=== PATIENT | female | born 1930 | race Caucasian/White ===

== ENCOUNTER 2016-12-29 21:07 | Inpatient (IN) | payer MEDICARE, OTHER ==
[~2016-12-29] VITALS: Ht 160 cm; Wt 52.3 kg
--- NOTE | ~2016-12-29 | OR ---
PATIENT'S NAME: LOIS [facility] AGE: 86 Y [address] ROOM: [place] [address] LOCATION: [facility] ADMIT DATE: 12/29/2016 OR/Procedure Report DISCHARGE DATE: FAMILY PHYSICIAN: PHYSICIAN, UNKNOWN ATTENDING PHYSICIAN: MARK MONTES SURGEON: Jh Acevedo MD X RAY DEVELOPING MACHINE OPERATOR: Luis Alberto Swift PA-C. DATE OF PROCEDURE: 12/30/2016 PREOPERATIVE DIAGNOSIS: Right comminuted and displaced intertrochanteric fracture of the proximal femur. POSTOPERATIVE DIAGNOSIS: Right comminuted and displaced intertrochanteric fracture of the proximal femur. PROCEDURE: 1. Right femoral intramedullary nailing. 2. Use of intraoperative fluoroscopy, less than 1 hour. ANESTHESIA: General endotracheal anesthesia. FLUIDS: See Anesthesia report. ESTIMATED BLOOD LOSS: Less than 50 mL. SPECIMEN: None. COMPLICATIONS: None. DISPOSITION: Stable in PACU. COUNTS: All counts correct. IMPLANTS: Synthes TFNA short femoral intramedullary nail with proximal lag screw and distal interlocking screw. INDICATIONS: Ms. Zimmerman is a pleasant 86-year-old female who sustained a fall and a right hip fracture. The risks, benefits, and alternatives of pursuing surgical intervention were discussed with the patient in detail. The patient and her son elected to proceed with surgery. Anesthesia was consulted for their perioperative evaluation of the patient. I marked the right hip and knee, indicating the correct surgical site. DESCRIPTION OF PROCEDURE: The patient was taken from the holding area to the operating room. A time-out was performed. General endotracheal anesthesia [facility] 86 Y [address] ROOM: [place] [address] LOCATION: [facility] ADMIT DATE: 12/29/2016 OR/Procedure Report DISCHARGE DATE: FAMILY PHYSICIAN: PHYSICIAN, UNKNOWN ATTENDING PHYSICIAN: MARK MONTES was administered. Clindamycin antibiotic was administered for perioperative prophylaxis. The patient was then placed on to a [place] table. A closed reduction of the right hip ensued. A final time-out was performed. I turned my attention the right hip. I introduced a guidewire at the level of the greater trochanter. I introduced intraoperative fluoroscopy and confirmed this position. The hip was reduced at this point. I introduced the pin into the femoral canal. I made a surgical incision approximately 3 fingerbreadths proximal to the tip of the greater trochanter. I introduced my opening reamer. I subsequently introduced my femoral nail. I then placed a K-wire through the nail into the femoral head. I confirmed its position, subsequently measured for, drilled and placed the lag screw into the head. I then used the compression function through the nail to compress the fracture through the lag screw. I confirmed the reduction fluoroscopically and was near anatomic. I then turned my attention to the distal interlock. I introduced the jig. I made a skin incision, drilled for, measured, and subsequently introduced a distal interlocking screw. Final fluoroscopic images of the right hip revealed a near anatomic femoral intramedullary nailing of the right hip fracture. The wounds were then copiously irrigated with normal sterile saline solution and closed in layers. Sterile Mepilex dressing was placed over each wound. The patient was then transferred from the [place] table onto the hospital bed and extubated. She was brought to the recovery room in stable condition. There were no intraoperative complications noted. Of note, my PA, Luis Alberto Swift PA-C, played an integral role in the intraoperative care of this patient. This included preoperative positioning, intraoperative expert retraction, and closing and dressing functions. IMPRESSION: The patient is status post the noted procedures above. PLAN: The patient will be weightbearing as tolerated on the right lower extremity. She will be instructed to rest, ice, and elevate the hip when possible. Physical Therapy and Occupational Therapy will be consulted for early ambulation, prevention of deconditioning, and postoperative pain. The patient is at baseline and has baseline severe dementia; therefore, we will ask Physical Therapy and Occupational Therapy to work with the patient on balance and reconditioning. DVT prophylaxis will be in the form of Lovenox. PATIENT'S NAME: SOO ZIMMERMAN [facility] AGE: 86 Y [address] ROOM: [id number] [place], [place] [address] LOCATION: [facility] ADMIT DATE: 12/29/2016 OR/Procedure Report DISCHARGE DATE: FAMILY PHYSICIAN: PHYSICIAN, UNKNOWN ATTENDING PHYSICIAN: MARK MONTES Postoperative pain control in form of Percocet and IV morphine as needed for pain. Postoperative antibiotics will be in the form of clindamycin. The hospitalist will continue to monitor the patient's concomitant medical comorbidities. I will continue to monitor the patient closely in the postoperative period. MD TIM CASTELLANOS/cele /[id number] d: 12/30/16 2142 t: 12/31/16 0831, OPERATIVE SUMMARY
--- NOTE | ~2016-12-29 | DS ---
PATIENT'S NAME: SOO [facility]REU [facility] AGE: 86 Y [address] ROOM: [id number] [place], [place] [address] LOCATION: [facility] ADMIT DATE: 12/29/2016 Discharge Summary DISCHARGE DATE: 01/02/2017 FAMILY PHYSICIAN: Irasema Fuentes MD ATTENDING PHYSICIAN: Raphael Leary PRIMARY DIAGNOSES: 1. Right femur fracture. 2. Right parietotemporal hematoma. 3. Alzheimer's dementia with acute psychosis. 4. Protein-calorie malnutrition. 5. Essential hypertension. 6. Acute hypoxic respiratory failure. 7. Acute blood loss anemia, not requiring transfusion. PRINCIPAL PROCEDURE: Done for the patient includes right femoral intramedullary nailing by Dr. Acevedo. LABS: Labs on admission, WBC of 7.3, was stable throughout hospital stay. Prior to discharge was 5.5, H and H on admission was 12.0/36.8, prior to discharge was 9.8/29.5. Sodium on admission was 139, was stable throughout hospital stay. Potassium on admission was 3.7, which was stable throughout hospital stay, at 3.9 upon discharge. Bicarb was stable at 28 throughout the hospital stay. Creatinine was 0.8 on admission, prior to discharge was 0.7. BUN on admission was 12, prior to discharge was 13. Liver function test was within normal limits. UA: Leukocytes negative, nitrite negative, blood negative. Prealbumin is 20. RADIOLOGY: Chest x-ray, cardiac silhouette is enlarged. Suboptimal inspiration accentuates bronchovascular markings, interstitial opacities within the mid and lower lungs, more so on the right side. This may represent some interstitial edema versus chronic fibrotic change. No focal infiltrate, pleural effusion, or pneumothorax is identified. CT head, rounded low attenuation lesion at the posterior right parietal lobe with central increased attenuation and hemorrhagic mass cannot be excluded. MRI of the brain is reported as acute 3 x 2 cm right parietotemporal hematoma, has imaging characteristics of a bland benign hematoma without evidence of underlying neoplasm, innumerable chronic microhemorrhages. 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 HOSPITAL COURSE: For history of present illness, please take a look at the H and P, which was done by Dr. Leary. The patient was admitted to the Neurotrauma Unit, had an orthopedic consult with Dr. Deblis. The patient was cleared for surgery and by the next day, had an intramedullary pinning of her right femur. Procedure was well tolerated by the patient without any PATIENT'S NAME: SOO [facility] AGE: 86 Y [address] ROOM: [id number] [place], [place] [address] LOCATION: [facility] ADMIT DATE: 12/29/2016 Discharge Summary DISCHARGE DATE: 01/02/2017 FAMILY PHYSICIAN: Irasema Fuentes MD ATTENDING PHYSICIAN: Raphael Leary intraoperative or postop complication. Postop, the patient was a little confused and also required some oxygen, however, with pulmonary toileting, the patient was successfully weaned off oxygen about second day postop. For the first day postoperatively, the patient was pretty aggressive, combative, which was attributed to her Alzheimer's dementia with psychotic features. However, this was control with her regular medications. She did also get a CT head done, which revealed a right parietotemporal mass, which was followed up with an MRI, which confirmed a right parietotemporal hematoma, however, the patient did not exhibit any neurological deficits. On the day of discharge, Neurosurgery, Dr. Khoury, evaluated the patient and recommended no intervention, but simply conservative management. The patient continued to respond pretty well postop. Medically, she remained stable. She was weaned off oxygen and her psychotic features of dementia were controlled and she was discharged back to the skilled nursing. MEDICATIONS ON DISCHARGE: Includes Lexapro 10 mg p.o. daily, Ativan 0.5 mg p.o. daily, Ativan 1 mg p.o. x1 after showers, risperidone 0.25 mg p.o. 3 times daily, Tylenol 650 mg p.o. q.6 hours p.r.n., tramadol 50 mg p.o. q.12 hours p.r.n., and Lomotil 1 tablet p.o. daily p.r.n. MD RUDDY SNYDER/cele /[id number] d: 01/02/172101 t: 01/14/17 1642, DISCHARGE SUMMARY
--- NOTE | ~2016-12-29 | HP ---
PATIENT'S NAME: SOO ABREU [facility] AGE: 86 Y [address] ROOM: [id number] [place], [place] [address] LOCATION: [facility] ADMIT DATE: 12/29/2016 History & Physical DISCHARGE DATE: FAMILY PHYSICIAN: PHYSICIAN, UNKNOWN ATTENDING PHYSICIAN: MARK MONTES DATE OF SERVICE: CHIEF COMPLAINT: Right hip pain, status post fall. HISTORY OF PRESENT ILLNESS: This is an 86-year-old jail female resident, who has advanced dementia and could provide limited history. I obtained history directly from the patient's son in person at the bedside and also by calling the jail directly and spoke to the nurse. The story is that the patient was at jail and was eating her food and when she got up from the chair and walked a few steps, she lost her balance and she fell on her right side on the ground hitting her right hip on the ground. It was not clear if she had a head trauma or not. She did not lose any consciousness. After the fall, the patient complained of severe right hip pain and could not get up. Therefore, the patient was brought to the outside facility for evaluation. At the outside facility in [place], the patient had pelvis x-ray performed and showed diffuse osteopenia with a comminuted right intertrochanteric fracture with displacement and coxa vara angulation deformity. The patient was later transferred here for orthopedic care. According to the patient's son and jail, the patient's METS score is less than 4. She has severe dementia where she requires assistance with most of her daily activities. 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 The patient is also disoriented sometimes to people, time, and place. On my interview, the patient denies any chest pain or any shortness of breath. According to the patient's son, the patient has been generally healthy all her life. Never complained about chest pain, never complained about shortness of breath at rest or exertion, and never had any heart problem in the past. Never had a heart failure, never had atrial fibrillation, never had myocardial infarction, and never complained of any pneumonia or any open heart surgery or any cardiac or pulmonary problem in the past. REVIEW OF SYSTEMS: As mentioned in history of present illness. Cannot really obtain a full review of systems with the patient given the patient's dementia. All other system were reviewed with the patient, and the patient denies any symptoms besides the pain in the right hip. PATIENT'S NAME: SOO ABREU [facility] AGE: 86 Y [address] ROOM: [place] [address] LOCATION: [facility] ADMIT DATE: 12/29/2016 History & Physical DISCHARGE DATE: FAMILY PHYSICIAN: PHYSICIAN, UNKNOWN ATTENDING PHYSICIAN: MARK MONTES PAST MEDICAL HISTORY: Based on the jail records and from the patient's son: 1. Hypertension, not on medication, just diet controlled. 2. Dementia with psychotic feature with advanced dementia at baseline. 3. Depression. ALLERGIES: SHE HAS LISTED PENICILLIN AND NOVOCAIN AND PREVACID (UNKNOWN REACTION). SOCIAL HISTORY: According to the patient's son, the patient was a very light cigarette smoker only for a few cigarettes per day for a few months or maybe a year and then she quit. This was many years ago. Denies any alcohol or any illegal drug use. PAST SURGICAL HISTORY: From jail records and from the patient's son: 1. Status post hysterectomy many years ago. 2. Status post right wrist surgery in the past. 3. Status post left elbow surgery in the past. FAMILY HISTORY: Father and mother from old age from a cause that the patient's son cannot remember. PHYSICAL EXAMINATION: VITAL SIGNS: At the time of my dictation, temperature 98, blood pressure 170/80, respirations 16, heart rate 88, and saturation 97% on 1 L nasal cannula. GENERAL APPEARANCE: Alert and disoriented to time, people, and place. Not in acute distress. HEENT: Pupils are equally round and reactive to light. Extraocular muscles intact. Nasal turbinates are normal bilaterally. Moist oral mucosa. NECK: No JVD. CARDIOVASCULAR: Regular rate and rhythm. Normal S1, S2. No murmur. No rubs. No gallops. RESPIRATORY: Clear. Chest wall nontender to palpation. ABDOMEN: Soft, nontender, and nondistended. Normal bowel sounds. No hepatosplenomegaly. No palpable mass. Bowel sounds present. EXTREMITIES: No edema in the upper or lower extremities. Dorsalis pedis pulses and posterior tibialis pulses are +2, bilaterally present in both lower extremities. NEUROLOGIC: Sensation intact in all extremities. Muscle strength could not be assessed on the right lower extremity to right hip fracture. Left lower extremity and both upper extremities muscle strength intact. Otherwise, PATIENT'S NAME: SOO ABREU [facility] AGE: 86 Y [address] ROOM: [place] [address] LOCATION: [facility] ADMIT DATE: 12/29/2016 History & Physical DISCHARGE DATE: FAMILY PHYSICIAN: PHYSICIAN, UNKNOWN ATTENDING PHYSICIAN: MARK MONTES unremarkable except that she is disoriented to people, time, and place from her advanced dementia at baseline. Sensation intact in all 4 extremities. No slurred speech. No facial droop. Pronator drift negative. SKIN: No ulcer. No rash. No cyanosis. No ecchymoses. No hematoma. MUSCULOSKELETAL: Right hip pain. Right lower extremity not examined due to the right hip fracture. Otherwise, bilateral upper extremity and left lower extremity intact in muscle strength and also in sensation. Range of motion also intact in all these three extremities. LABORATORY DATA: Troponin less than 0.04, proBNP 344, CPK 109, CK-MB 2.0. White blood cells 7.8, hemoglobin 12, hematocrit 36.8, MCV 91.5, platelets 204. Glucose 143, BUN 12, creatinine 0.8, sodium 139, potassium 3.7, chloride 102, CO2 of 28, calcium 9.1, total protein 6.9, albumin 3.4, AST 25, ALT 19, alkaline phosphatase 99, total bilirubin 0.4, direct bilirubin 0.1, magnesium 2.2, GFR more than 60, anion gap 12.7, globulin 3.5. INR 0.98, PTT 28. Urinalysis: Negative for UTI. CK-MB 2.0. Prealbumin 20. IMAGING STUDY: Chest x-ray on admission, the official reading is pending. Based on my review, no obvious effusion or consolidation. X-ray of the pelvis from the outside facility on admission was read as diffuse osteopenia with a comminuted right intertrochanteric fracture with displacement and coxa vara angulation deformity. EKG on admission on December 29, 2016, at 11:26 p.m. shows sinus rhythm with first- degree AV block with a OR interval of 203 milliseconds. Heart rate 65. QRS 104 milliseconds. QTc 424 milliseconds. No acute ischemic changes. There is left axis deviation. No prior EKG for comparison. ASSESSMENT AND PLAN: 1. Regarding her right comminuted intertrochanteric fracture with displacement and coxa vara angulation deformity, status post fall: Deferred to Orthopedic Surgery team for surgery. 2. Regarding her preoperative medical clearance for noncardiac surgery: From the guideline of the preoperative medical evaluation for noncardiac PATIENT'S NAME: SOO ABREU [facility] AGE: 86 Y [address] ROOM: [address] [address] LOCATION: [facility] ADMIT DATE: 12/29/2016 History & Physical DISCHARGE DATE: FAMILY PHYSICIAN: PHYSICIAN, UNKNOWN ATTENDING PHYSICIAN: MARK MONTES surgery in this case for orthopedic surgeon, which is considered an intermediate-risk surgery, the patient does not have active contraindication at the moment from the guideline to prevent her from undergoing orthopedic surgery tomorrow. At the moment, the patient does not warrant any additional testing at the moment. Her METS score is less than 4. But looking at the clinical risk factors, the patient does not have any clinical risk factor based on the guideline. Therefore, from the guideline for the preoperative cardiac evaluation for noncardiac surgery, the patient can proceed with surgery for tomorrow unless her clinical course changes. N.p.o. after midnight. IV fluids with D5 half- normal saline and 20 mEq of potassium chloride at 50 mL/h for maintenance. Pain control with IV morphine p.r.n. and p.o. [place] p.r.n. Nausea with IV Zofran p.r.n. Constipation prevention treated with senna p.o. p.r.n. Tylenol also for pain control p.r.n. as well. The patient does have allergy to penicillin. Therefore, before the surgery, the patient will be getting clindamycin 900 mg IV prior to the surgery tomorrow. Continue telemetry monitoring to rule out any hidden arrhythmia. I will check a fingerstick glucose tomorrow at 10:00 a.m. in the morning and also get another one at 1:00 p.m. to monitor her while she is n.p.o. to prevent hypoglycemia. I will repeat another basic metabolic panel in the morning to make sure she is not dehydrated and she is not having an WILLIE. IV fluids for hydration as mentioned before while she is n.p.o. 3. Regarding her hypertension: Currently is in the 170 systolic, that is pain related. I will start her on IV labetalol p.r.n. and IV hydralazine p.r.n. with holding parameter and to be given only if necessary. 4. Regarding her fall: custodial was not sure if she hit her head or not. Given the patient cannot give a reliable history, I will check a CT of the head without contrast to make sure there is no head bleed from the fall. 5. Regarding her deep venous thrombosis prophylaxis: Foot pumps. 6. Code status: DNR/DNI. Time spent on the day of admission in care 45 minutes including chart review, interviewing the patient, examining the patient, getting all the history from the patient's son in person and also by calling the jail and also addressed all the questions and concerns that the patient's son and the patient had and answered all the questions to their satisfaction. I also went over the plan of care with the nurses and also with the patient and the patient's son at the bedside. All questions and concerns were answered. Further plan depends on clinical course. Tomorrow morning, the patient will have a basic metabolic panel checked again in the morning and monitor her vital signs closely given that the surgery is not due until tomorrow in the afternoon. Therefore, before the surgery, she must have good vital signs with a stable blood pressure and her basic metabolic panel will be checked again in PATIENT'S NAME: SOO ABREU [facility] AGE: 86 Y [address] ROOM: [place] [address] LOCATION: [facility] ADMIT DATE: 12/29/2016 History & Physical DISCHARGE DATE: FAMILY PHYSICIAN: PHYSICIAN, UNKNOWN ATTENDING PHYSICIAN: MARK MONTES the morning and also monitor her glucose level to prevent hypoglycemia while she is n.p.o. Further plan depends on clinical course. But at the moment, the patient is cleared for surgery unless tomorrow or overnight course or before the surgery, her clinical condition changes. Further plan depends on clinical course. MD NACHO RINALDI/modl /[id number] D: [id number] T: [id number] HISTORY & PHYSICAL
--- NOTE | ~2016-12-29 | CON ---
PATIENT'S NAME: LOIS [facility] AGE: 86 Y [address] ROOM: [place] [address] LOCATION: [facility] ADMIT DATE: 12/29/2016 Consultation DISCHARGE DATE: FAMILY PHYSICIAN: PHYSICIAN, UNKNOWN ATTENDING PHYSICIAN: MARK MONTES DATE OF CONSULTATION: 12/30/2016 REFERRING PHYSICIAN: JESSICA BARILLAS MD CHIEF COMPLAINT: Right hip pain. HISTORY OF PRESENT ILLNESS: Ms. Zimmerman is a pleasant 86-year-old female, who resides in a nursing facility, who sustained a fall at dinner last evening. Unfortunately, the patient has advanced dementia and does not recall the incident. I was contacted by Dr. Shirley at [facility] who saw and evaluated the patient and diagnosed with a right hip fracture. It was requested that she be transferred to our facility for definitive orthopedic care. Currently, the patient complains of right hip pain, aggravated by movement of the hip or attempted weightbearing. Alleviating factors include rest, ice, and elevation of the hip. Currently, the patient has no constitutional symptoms such as fever, chills, or night sweats. There is no dizziness, chest pain, short of breath, blurred vision, nausea, vomiting, or diarrhea. REVIEW OF SYSTEMS: A 10-point review of systems otherwise mentioned above. The patient issue is musculoskeletal, pertains to the right lower extremity, there is pain with range of motion and palpation about the right hip. PAST MEDICAL HISTORY: Include: 1. Hypertension. 2. Advanced dementia. 3. Depression. ALLERGIES: INCLUDE: 1. PENICILLIN. 2. NOVOCAIN. 3. PREVACID. SOCIAL HISTORY: PATIENT'S NAME: LOIS [facility] AGE: 86 Y [address] ROOM: [place] [address] LOCATION: [facility] ADMIT DATE: 12/29/2016 Consultation DISCHARGE DATE: FAMILY PHYSICIAN: PHYSICIAN, UNKNOWN ATTENDING PHYSICIAN: MARK MONTES According to the patient's son, she was a light cigarette smoker in the past. She denies any alcohol or illicit drug use at this time. PAST SURGICAL HISTORY: Include: 1. Hysterectomy. 2. Right wrist surgery. 3. Left elbow surgery. FAMILY HISTORY: Mother from old age from cause that the patient's son cannot recall. PHYSICAL EXAMINATION: VITAL SIGNS: Temperature 97.6, respirations 12, heart rate of 53, and blood pressure 133/61. GENERAL: The patient is awake and alert. She has no acute distress. She is unable to converse at the bedside. HEENT: Normocephalic and atraumatic. Extraocular movements are intact. PERRLA. Moist mucous membranes. Oropharyngeal airway is clear. NECK: Supple. Trachea is in midline. CARDIOVASCULAR: Regular rate and rhythm. CHEST: Normal symmetric respirations observed bilaterally. ABDOMEN: Soft, nontender, and nondistended. PELVIS: Stable. MUSCULOSKELETAL: Right lower extremity: Focal examination of the patient's right lower extremity reveals that she is grossly neurologically intact distally. There is a positive log roll test of the hip. Compartments of the thigh, leg, and foot are soft. There is a palpable dorsalis pedal and posterior tibial pulses. Good capillary refill in the digits are noted. The extremities, otherwise, warm and well perfused. Any attempted motion of the right lower extremity elicits pain. There is shortening and external rotation of the limb compared to the contralateral extremity. LABORATORY DATA: CBC: Hemoglobin 12, hematocrit 36.4, white blood cell count of 7.8, and platelet count 204. Chem 7: Sodium 139, potassium 3.7, chloride 102, CO2 28, BUN 12, creatinine 0.8, glucose 143. Coag profile: PT 10.3, INR 0.98, and PTT is 28. Urinalysis is negative for UTI. IMAGING DATA: Plain radiographs of the right hip reveal evidence of a comminuted, shortened, and displaced intertrochanteric fracture of the proximal femur. IMPRESSION: PATIENT'S NAME: SOO ZIMMERMAN [facility] AGE: 86 Y [address] ROOM: [place] [address] LOCATION: [facility] ADMIT DATE: 12/29/2016 Consultation DISCHARGE DATE: FAMILY PHYSICIAN: PHYSICIAN, UNKNOWN ATTENDING PHYSICIAN: MARK MONTES Right comminuted and displaced intertrochanteric fracture of the proximal femur. PLAN: I had a long discussion with the patient in the presence of her son regarding the right hip. She sustained a right hip fracture. I am recommending a right femoral intramedullary nailing. I discussed the risks, benefits, and alternatives pursuing a surgical intervention in detail. I discussed the risks of anesthesia, infection, bleeding, and/or injury to neurovascular structures. The patient is currently on bedrest. She is currently n.p.o. The hospitalist Service has seen and evaluated the patient and cleared her for surgery this afternoon. We will plan to proceed with surgery as soon as possible today, for definitive orthopedic fixation. MD TIM CASTELLANOS/cele /[id number] d: 12/30/16 0937 t: 12/30/16 1104, CONSULTATION REPORT
--- NOTE | ~2016-12-29 | CON ---
PATIENT'S NAME: LOIS [facility] AGE: 86 Y [address] ROOM: [place] [address] LOCATION: [facility] ADMIT DATE: 12/29/2016 Consultation DISCHARGE DATE: 01/02/2017 FAMILY PHYSICIAN: Irasema Fuentes MD ATTENDING PHYSICIAN: Raphael Leary DATE OF CONSULTATION: 01/02/2017 REFERRING PHYSICIAN: Jh Acevedo MD REQUESTING PHYSICIAN: Dr. Vera. REASON FOR CONSULTATION: Intracerebral hemorrhage. PATIENT IDENTIFICATION: Chioma Zimmerman is an 86-year-old female. PRESENTING COMPLAINT: Hip fracture. HISTORY OF PRESENT ILLNESS: The patient was admitted on December 29, 2016, having [facility] at the [facility]. She sustained a right hip fracture. She underwent intraoperative fixation of the hip fracture on December 30, 2016. Dr. Acevedo was the surgeon. Postoperatively, the patient had a head CT scan done. This was followed by an MRI scan. The imaging studies showed a small hemorrhage in the right parieto-occipital region. I was therefore consulted to see the patient on account of this. PAST MEDICAL HISTORY: The patient has had prior fractures according to the son. She has also had previous mini strokes. She has a history of advanced Alzheimer disease and lives in a [facility]. FAMILY HISTORY: There is no family history available relevant to this problem. SOCIAL HISTORY: The patient resides in a [facility]. According to the son, the patient has a PhD in [employer] and also has an airline pilots license. She was previously ambulatory. REVIEW OF SYSTEMS: Unable to obtain a review of systems as the patient is quite agitated. [facility] 86 Y [address] ROOM: [place] [address] LOCATION: [facility] ADMIT DATE: 12/29/2016 Consultation DISCHARGE DATE: 01/02/2017 FAMILY PHYSICIAN: Irasema Fuentes MD ATTENDING PHYSICIAN: Raphael Leary CURRENT MEDICATIONS: Please see chart. ALLERGIES: PLEASE SEE CHART. PHYSICAL EXAMINATION: GENERAL: The patient was found lying on her bed, in [facility]. NEUROLOGIC: She was alert, but very confused. Because of the confusion, it was not possible to obtain a detailed neurologic examination. Her speech was confused and aggressive sometimes. Cranial nerves, no obvious deficits. Motor examination, the patient was a 2-person assist to stand up and was unable to ambulate, maybe a step or two. HEAD: There is no evidence of trauma to the head. EYES AND EARS: No evidence of trauma. SKIN: No skin rashes or skin masses. EXTREMITIES: The patient has had a recent right hip fracture fixation. IMAGING STUDIES: The patient has had a brain MRI performed. MRI shows a right-sided 30 mm x 28 mm right parieto-occipital intracerebral hematoma. There is no mass effect. There are evidence of prior hemorrhages. The impression was possible amyloid angiopathy. MEDICAL DECISION MAKING: I discussed the patient's medical condition with her son. The son did not feel that the patient would want any invasive procedures done, and there is really no indication for any invasive procedures to be done anyway. At this time, there are no neurosurgical procedures planned. The patient is being transferred to [facility]. If it is necessary, a repeat imaging could be done to confirm that the hematoma is resolving. All this was discussed with the patient's son, Wally, who is the power of document review attorney. MD DYLAN KELLEY/cele /[id number] d: 01/02/17 1532 t: 01/04/17 0941, CONSULTATION REPORT
[2016-12-29 23:14] LABS: BASOPHIL % 0.1 %; EOSINOPHIL % 0.4 %; HEMATOCRIT 36.8 % (30.0-46.0); IMMATURE GRANULOCYTE % 0.4 %; LYMPHOCYTE # 0.9 K/uL (0.8-4.0); LYMPHOCYTE % 10.9 %; MCH 29.9 pg (27.0-34.0); MCHC 32.6 gm/dL (32.0-36.5); MCV 91.5 fl (83.0-98.0); MONOCYTE # 0.4 K/uL (0.0-1.0); MONOCYTE % 5.4 %; MPV 9.9 fl (9.4-12.4); NEUTROPHIL # (ANC) 6.5 K/uL (1.8-7.8); NEUTROPHIL % 82.8 %; NRBC % 0 /100WBC (0-0.00); PLATELET COUNT 204 K/uL (150-450); RBC 4.02 M/uL (3.00-5.00); RDW-CV 13.7 % (11.9-14.6); WBC 7.8 K/uL (4.0-11.0)
[2016-12-29 23:26] LABS: INR - (THERAPEUTIC) 0.98 (0.92-1.07); PROTIME 10.3 SECONDS (9.8-11.4); PTT 28 SECONDS (25-32)
[2016-12-29 23:34] LABS: ALBUMIN 3.4 gm/dL (3.5-5.0); ALK PHOS 99 IU/L (33-138); ALT 19 IU/L (12-78); ANION GAP 12.7 (10.0-19.0); AST 25 IU/L (10-40); BLOOD UREA NITROGEN 12 mg/dL (6-24); CALCIUM 9.1 mg/dL (8.5-10.5); CHLORIDE 102 mMol/L (96-110); CO2 28 mMol/L (22-32); CPK 109 IU/L (21-215); CREATININE 0.8 mg/dL (0.5-1.1); ESTIMATED GFR (MDRD EQUATION) > 60; MAGNESIUM 2.2 mg/dL (1.8-2.6); POTASSIUM 3.7 mMol/L (3.7-5.1); SODIUM 139 mMol/L (135-145); TOTAL BILIRUBIN 0.4 mg/dL (0.0-1.5); TOTAL PROTEIN 6.9 g/dL (6.0-8.4)
[2016-12-29 23:53] LABS: BILIRUBIN URINE NEGATIVE (NEGATIVE); BLOOD URINE NEGATIVE /UL (NEGATIVE); COLOR URINE YELLOW (YELLOW); GLUCOSE URINE 100 mg/dL (NEGATIVE); KETONE URINE NEGATIVE (NEGATIVE); LEUKOCYTES URINE NEGATIVE /UL (NEGATIVE); NITRITE URINE NEGATIVE (NEGATIVE); PROTEIN URINE NEGATIVE (NEGATIVE); TURBIDITY URINE CLEAR (CLEAR); UROBILINOGEN URINE NORMAL (NORMAL)
[2016-12-30 08:15] LABS: ANION GAP 12.1 (10.0-19.0); BLOOD UREA NITROGEN 10 mg/dL (6-24); CALCIUM 9.2 mg/dL (8.5-10.5); CHLORIDE 103 mMol/L (96-110); CO2 28 mMol/L (22-32); CREATININE 0.6 mg/dL (0.5-1.1); ESTIMATED GFR (MDRD EQUATION) > 60; POTASSIUM 4.1 mMol/L (3.7-5.1); SODIUM 139 mMol/L (135-145)
[2016-12-30] MEDS ORDERED: ATIVAN 0.5MG0.5 MG PO (11:15)
[2016-12-30] MEDS ORDERED: ATIVAN 1 MG1 MG PO (11:17)
[2016-12-30] MEDS ORDERED: LEXAPRO10 MG PO (11:17)
[2016-12-30] MEDS ORDERED: LOMOTIL 2.5-0.1 EACH PO (11:18)
[2016-12-30] MEDS ORDERED: ULTRAM50 MG PO (11:19)
[2016-12-30] MEDS ORDERED: RISPERDAL0.25 MG PO (11:19)
[2016-12-30] MEDS ORDERED: TYLENOL325 MG PO (11:20)
[2016-12-31 04:37] LABS: BASOPHIL % 0.4 %; EOSINOPHIL % 0.7 %; HEMATOCRIT 29.9 % (30.0-46.0); HEMOGLOBIN 9.7 g/dL (10.0-15.0); IMMATURE GRANULOCYTE % 0.4 %; LYMPHOCYTE % 17.7 %; MCH 29.9 pg (27.0-34.0); MCHC 32.4 gm/dL (32.0-36.5); MCV 92.3 fl (83.0-98.0); MONOCYTE # 0.5 K/uL (0.0-1.0); MONOCYTE % 9.5 %; MPV 9.9 fl (9.4-12.4); NEUTROPHIL # (ANC) 3.8 K/uL (1.8-7.8); NEUTROPHIL % 71.3 %; NRBC % 0 /100WBC (0-0.00); PLATELET COUNT 171 K/uL (150-450); RBC 3.24 M/uL (3.00-5.00); RDW-CV 13.7 % (11.9-14.6); WBC 5.4 K/uL (4.0-11.0)
[2016-12-31 04:48] LABS: ANION GAP 12.9 (10.0-19.0); BLOOD UREA NITROGEN 13 mg/dL (6-24); CALCIUM 8.7 mg/dL (8.5-10.5); CHLORIDE 101 mMol/L (96-110); CO2 28 mMol/L (22-32); CREATININE 0.7 mg/dL (0.5-1.1); ESTIMATED GFR (MDRD EQUATION) > 60; MAGNESIUM 2.1 mg/dL (1.8-2.6); POTASSIUM 3.9 mMol/L (3.7-5.1); SODIUM 138 mMol/L (135-145)
[2017-01-01 06:14] LABS: HEMATOCRIT 26.3 % (30.0-46.0); HEMOGLOBIN 8.8 g/dL (10.0-15.0)
[2017-01-02 08:41] LABS: HEMATOCRIT 29.5 % (30.0-46.0); HEMOGLOBIN 9.8 g/dL (10.0-15.0)
== END 2017-01-02 10:29 | DRG 956 ==
LOC: GMSU 22:35 → G3N 22:35 → GNTU 22:35 → G3N 12-30 16:01 → GMSU 01-01 16:52
PROVIDERS: Hospitalist; ADMIT Internal Medicine
PROC: 0QS636Z Reposition Right Upper Femur with Intramedullary Internal Fixation Device, Percutaneous Approach (ICD-10-PCS; principal; 2016-12-30)
DX: S72.141A Displaced intertrochanteric fracture of right femur, initial encounter for closed fracture (principal); S06.340A Traumatic hemorrhage of right cerebrum without loss of consciousness, initial encounter; G30.9 Alzheimer's disease, unspecified; F02.80 Dementia in other diseases classified elsewhere, unspecified severity, without behavioral disturbance, psychotic disturbance, mood disturbance, and anxiety; E44.1 Mild protein-calorie malnutrition; W19.XXXA Unspecified fall, initial encounter; F22 Delusional disorders; I10 Essential (primary) hypertension; F32.9 Major depressive disorder, single episode, unspecified; I99.8 Other disorder of circulatory system; F29 Unspecified psychosis not due to a substance or known physiological condition; R32 Unspecified urinary incontinence; Z66 Do not resuscitate; Z86.73 Personal history of transient ischemic attack (TIA), and cerebral infarction without residual deficits
CPT/HCPCS: C1713; C9113; J1650; J2060; J2250; J2270; J3480; J7120

== ENCOUNTER → 2017-01-02 | Outpatient (CLI) | payer MEDICARE, OTHER ==
[~2017-01-02] MED LIST: ATIVAN 0.5MG0.5 MG PO; ATIVAN 1 MG1 MG PO; LEXAPRO10 MG PO; LOMOTIL 2.5-0.1 EACH PO; RISPERDAL0.25 MG PO; TYLENOL325 MG PO; ULTRAM50 MG PO
== END | disposition disaster alternative care site (69) ==
LOC: GAMB 10:36
DX: S79.911A Unspecified injury of right hip, initial encounter (principal); S72.141A Displaced intertrochanteric fracture of right femur, initial encounter for closed fracture; F03.91 Unspecified dementia, unspecified severity, with behavioral disturbance; I10 Essential (primary) hypertension; Z90.710 Acquired absence of both cervix and uterus; Z79.891 Long term (current) use of opiate analgesic; Z79.899 Other long term (current) drug therapy; Z88.0 Allergy status to penicillin; Z88.4 Allergy status to anesthetic agent; Z88.8 Allergy status to other drugs, medicaments and biological substances; X58.XXXA Exposure to other specified factors, initial encounter
CPT/HCPCS: A0425; A0428